=== PATIENT | male | born 1995 | race Hispanic/Latino ===

== ENCOUNTER 2024-03-10 21:37 | Emergency (ER) | payer MEDICAID ==
[~2024-03-10] VITALS: Ht 160 cm; Wt 69.4 kg
--- NOTE | 2024-03-10 21:44 | NUR ---
COVID, FLU AND STREP SWABS COLLECTED AND SENT [facility] PROVIDED
[2024-03-10 21:53] LABS: APPEARANCE,URINE CLEAR (CLEAR); BILIRUBIN,URINE NEGATIVE (NEGATIVE); COLOR,URINE LIGHT-YELLOW (YELLOW); GLUCOSE, URINE (UA) NEGATIVE (NEGATIVE); KETONES,URINE NEGATIVE (NEGATIVE); LEUKOCYTE ESTERASE ,URINE NEGATIVE Leu/uL (NEGATIVE); NITRATE,URINE NEGATIVE (NEGATIVE); OCCULT BLOOD,URINE NEGATIVE (NEGATIVE); PH,URINE 5.5 (5.0-8.0); PROTEIN,URINE NEGATIVE (NEGATIVE); UROBILINOGEN,URINE 0.2 mg/dL (0.2-1.0)
[2024-03-10 21:54] LABS: ADD UA MICROSCOPIC NO
[2024-03-10 22:21] LABS: RAPID GROUP A STREP negative (NEGATIVE)
[2024-03-10 22:25] LABS: SARS-CoV-2, RNA, NAAT NEGATIVE SARS CoV-2 (NEGATIVE)
[2024-03-10 22:30] LABS: INFLUENZA TYPE A Negative For Type A (NEGATIVE); INFLUENZA TYPE B Negative For Type B (NEGATIVE)
[2024-03-10 22:33] LABS: BASOPHILS # (AUTO) 0.03 K/uL (0.00-0.20); BASOPHILS % (AUTO) 0.4 % (0.0-5.0); EOSINOPHILS # (AUTO) 0.05 K/uL (0.00-0.70); EOSINOPHILS % (AUTO) 0.7 % (0.0-8.0); HEMATOCRIT 42.7 % (42-54); IMMATURE GRANULOCYTE ABSOLUTE 0.07 K/uL (0-1); LYMPHOCYTES # (AUTO) 3.4 K/uL (1.0-4.8); LYMPHOCYTES % (AUTO) 44.4 % (21.0-51.0); MEAN CORPUSCULAR HEMOGLOBIN 30.9 pg (27.0-33.0); MEAN CORPUSCULAR HGB CONC 36.5 g/dL (32.0-36.0); MEAN CORPUSCULAR VOLUME 84.6 fL (79-99); MONOCYTES # (AUTO) 0.3 K/uL (0.1-1.0); MONOCYTES % (AUTO) 4.3 % (3.0-13.0); NEUTROPHILS # (AUTO) 3.8 K/uL (1.8-7.7); NEUTROPHILS % (AUTO) 49.3 % (40.0-77.0); PLATELET COUNT (AUTO) 253 K/uL (130-400); RED BLOOD CELL COUNT(AUTO) 5.05 MIL/uL (4.50-6.20); RED CELL DISTRIBUTION WIDTH 11.6 % (11.0-15.5); WHITE BLOOD COUNT (AUTO) 7.7 K/uL (4.8-10.8)
[2024-03-10 23:02] LABS: ALBUMIN 4.6 g/dL (3.5-5.0); BILIRUBIN,TOTAL 0.5 mg/dL (0.2-1.0); TOTAL PROTEIN, SERUM 8.2 g/dL (6.0-8.3)
[2024-03-10 23:05] LABS: POTASSIUM 2.9 mmol/L (3.5-5.1)
[2024-03-10] MEDS: PoTASSium BIcarbonate/CIT AC 25 MEQ TABLET.EFF PO ONE (23:10)
--- NOTE | 2024-03-10 23:21 | ERN ---
ED Note History of Present Illness Stated Complaint: DIARRHEA Chief Complaint: Diarrhea Time Seen by MD: 21:42 Time Seen by Midlevel: 21:48 Dictation: 28-year-old male with history of hypertension and autism coming in complaining of diarrhea x5 today nonbloody. Patient denies having any abdominal pain, fever, vomiting, cough or congestion. Allergies: Coded Allergies: No Known Allergies (Unverified Allergy, Unknown, 03/10/24) Past Medical History Past Medical History: Asthma, Other Additional Past Medical Hx: AUTISTIC Surgical History: None Review of System Dictation Constitutional: Negative for fever,chills, and weight loss Eyes: Negative for injury, pain,redness, and discharge ENT: Negative for injury,pain or swelling Cardiovascular: Negative for chest pain, palpitations, and edema Respiratory: Negative for shortness of breath, cough, and wheezing, Abdomen/GI: Negative for abdominal pain, nausea, vomiting, complaining of diarrhea Back: Negative for injury and pain : Negative for injury, bleeding and discharge MS/Extremity: Negative for injury and deformity Skin: Negative for rash, and discoloration Neuro: Negative for headache, weakness, numbness, tingling, and seizure Psych: Negative for suicide ideation, homicidal ideation, and hallucinations Review of Systems: was completed Initial Vital Sign VS Vital Signs Date Time Temp Pulse Resp B/P (MAP) Pulse Ox O2 Delivery O2 Flow Rate FiO2 03/10/24 21:39 96.4 65 16 146/101 98 Room Air 03/10/24 22:11 0 21 Physical Exam Dictation General: awake, alert, NAD Head/Face: Normocephalic, atraumatic Eyes: PERRL, EOMI, vision at baseline ENT: oral cavity clear, TMs clear, no signs of infection Neck: Trachea midline, supple, no nuchal rigidity Cardiovascular: RRR, normal S1/S2, No MRGs, no JVD Respiratory: CTAB, no respiratory distress, No rales or wheezes Abdomen: Soft, non-tender, non-distended, normal bowel sounds, no guarding or rebound. Skin: Warm, dry, normal turgor, no rash MS/Extremity: Pulses equal, no cyanosis, neurovascular intact, FROM Neuro: COAx4, GCS 15, strength 5/5, CN 2-12 intact, normal cerebellar exam, normal gait, Psych: Normal behavior, mood, and affect normal Results (Laboratory/Radiology) Laboratory/Radiology Laboratory Tests Test 03/10/24 21:40 03/10/24 21:42 03/10/24 22:24 03/10/24 23:55 Influenza Type A Antigen Negative For Type A Influenza Type B Antigen Negative For Type B SARS-CoV-2, RNA, NAAT NEGATIVE SARS CoV-2 Group A Streptococcus Rapid negative (NEGATIVE) Urine Color LIGHT-YELLOW (YELLOW) Urine Appearance CLEAR (CLEAR) Urine pH 5.5 (5.0-8.0) Urine Specific Lovely 1.018 (1.001-1.031) Urine Protein NEGATIVE mg/dL (NEGATIVE) Urine Glucose (UA) NEGATIVE mg/dL (NEGATIVE) Urine Ketones NEGATIVE mg/dL (NEGATIVE) Urine Occult Blood NEGATIVE (NEGATIVE) Urine Nitrate NEGATIVE (NEGATIVE) Urine Bilirubin NEGATIVE mg/dL (NEGATIVE) Urine Urobilinogen 0.2 mg/dL (0.2-1.0) Urine Leukocyte Esterase NEGATIVE Norah/uL White Blood Count 7.7 K/uL (4.8-10.8) Red Blood Count 5.05 MIL/uL (4.50-6.20) Hemoglobin 15.6 g/dL (14.0-18.0) Hematocrit 42.7 % (42-54) Mean Corpuscular Volume 84.6 fL (79-99) Mean Corpuscular Hemoglobin 30.9 pg (27.0-33.0) Mean Corpuscular Hemoglobin Concent 36.5 g/dL (32.0-36.0) H Red Cell Distribution Width 11.6 % (11.0-15.5) Platelet Count 253 K/uL (130-400) Mean Platelet Volume 9.1 fL (7.5-10.5) Immature Granulocyte % (Auto) 0.9 % (0-1) Neutrophils (%) (Auto) 49.3 % (40.0-77.0) Lymphocytes (%) (Auto) 44.4 % (21.0-51.0) Monocytes (%) (Auto) 4.3 % (3.0-13.0) Eosinophils (%) (Auto) 0.7 % (0.0-8.0) Basophils (%) (Auto) 0.4 % (0.0-5.0) Neutrophils # (Auto) 3.8 K/uL (1.8-7.7) Lymphocytes # (Auto) 3.4 K/uL (1.0-4.8) Monocytes # (Auto) 0.3 K/uL (0.1-1.0) Eosinophils # (Auto) 0.05 K/uL (0.00-0.70) Basophils # (Auto) 0.03 K/uL (0.00-0.20) Absolute Immature Granulocyte (auto 0.07 K/uL (0-1) Nucleated Red Blood Cells 0.0 % (0.0-0.19) Sodium Level 140 mmol/L (136-145) Potassium Level 2.9 mmol/L (3.5-5.1) *L 3.3 mmol/L (3.5-5.1) L Chloride Level 104 mmol/L (101-111) Carbon Dioxide Level 27 mmol/L (21-32) Blood Urea Nitrogen 6 mg/dL (7-18) L Creatinine 1.0 mg/dL (0.5-1.3) Glomerular Filtration Rate Calc 105 mL/min (>90) Random Glucose 99 mg/dL (70-105) Total Calcium 9.5 mg/dL (8.5-10.1) Total Bilirubin 0.5 mg/dL (0.2-1.0) Aspartate Amino Transf (AST/SGOT) 24 U/L (10-37) Alanine Aminotransferase (ALT/SGPT) 25 U/L (12-78) Alkaline Phosphatase 69 U/L (50-136) Total Protein 8.2 g/dL (6.0-8.3) Albumin 4.6 g/dL (3.5-5.0) Labs Reviewed?: Yes ED Course ED Course Orders Procedure Category Date Status Time Covid Rna Naat LAB 03/10/24 Complete 21:43 Influenza Type A & B, LAB 03/10/24 Complete Rapid 21:43 Rapid (Group A Strep) LAB 03/10/24 Complete 21:43 Urinalysis Profile LAB 03/10/24 Complete 21:43 Cbc With Differential LAB 03/10/24 In Process 22:00 Comprehensive LAB 03/10/24 Complete Metabolic Panel 22:00 12 Lead Ekg Tracing- EKG 03/10/24 Logged Technical 22:00 Potassium Bicarb/Cit PHA 03/10/24 Complete Ac 25meq (K-Lyte Ta 23:30 Potassium LAB 03/11/24 Complete 00:00 Current Medications Medications (Trade) Dose Ordered Sig/Jana Route PRN Reason Start Time Stop Time Status Last Admin Dose Admin Potassium Bicarbonate (K-Lyte Tablet Eff 25 Meq Tablet.eff) 50 meq ONCE ONCE PO 03/10/24 23:30 03/10/24 23:31 DC 03/10/24 23:10 Vital Signs Date Time Temp Pulse Resp B/P (MAP) Pulse Ox O2 Delivery O2 Flow Rate FiO2 03/10/24 23:11 97.9 67 18 131/96 96 Room Air* 0 21 03/10/24 22:11 96.4 65 16 146/101 98 Room Air* 0 21 03/10/24 21:39 96.4 65 16 146/101 98 Room Air Medical Decision Making MDM MDM: 28-year-old male with history of hypertension and autism coming in complaining of diarrhea x5 today nonbloody. Patient denies having any abdominal pain, fever, vomiting, cough or congestion. Patient has a time of interview was eating a sandwich, tolerating it. Differential diagnosis: Gastroenteritis, dehydration, electrolyte abnormality.CBC shows no leukocytosis, no anemia, no thrombocytopenia. Chemistry shows hypokalemia at 2.9, replacement given in ER, no other electrolyte abnormality. No transaminitis, T bili within normal range. UA shows no evidence of urinary tract infection. Serology negative for COVID and flu. MS 3.3. Discussed findings with the patient. Educated patient to eat more food with potassium and to return to the ER if diarrhea does not resolve. Educated to follow up with PCP in 1-2 days and comes to the ER symptoms worsen. Rationale: Tests considered and ordered secondary to shared decision making include: Previous outside records reviewed: Old ER visits. Risk of complication and/or morbidity or mortality of patient management: None Medications-Per medication reconciliation Need for hospitalization: Patient does not meet criteria for hospitalization. Need for emergency major/minor surgery: No There are no social concerns with this patient. Prescription drug management Prescriptions will include symptomatic care Patient's prior external medical records from other ER visits were reviewed by me as indicated. Prior testing and results from previous visits were reviewed. Prior tests were taken into account with medical decision making and resource utilization, independent historian/historians were used to obtain complete medical history. I independently interpreted the test that were performed, results were reviewed by me and considered findings on radiology if ordered. Medical management and examination interpretation discussions were had by me with other qualified healthcare professionals as indicated for the patient's care. DX & DISP Disposition: Discharge Departure Impression: Primary Impression: Hypokalemia Additional Impression: Diarrhea Condition: Stable Additional Instructions: You can take loperamide/iodium as needed for the diarrhea. Stay hydrated. Follow up with PCP in 1-2 days. Referrals: SELF,REFERRAL (PCP) Time of Disposition: 00:17 I have reviewed the case, and I agree with, Diagnosis and Plan CECILIA ALBERT NP Mar 10, 2024 23:21
[2024-03-11 00:21] VITALS: BP 127/85; PULSE 72; RESP 20; TEMP 97.1; O2SAT 97
--- NOTE | 2024-03-11 07:20 | EKG ---
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
[2024-03-11] MEDS ORDERED: HYDR28.32 TP (21:54)
== END 2024-03-11 00:24 | disposition home or self-care (01) ==
LOC: EDH 21:37
DX: E87.6 Hypokalemia (principal); R19.7 Diarrhea, unspecified; F84.0 Autistic disorder; J45.909 Unspecified asthma, uncomplicated; Z20.822 Contact with and (suspected) exposure to COVID-19
CPT/HCPCS: 36415; 80053; 81003; 84132; 85025; 87635; 87804; 87880; 93005; 99284

== ENCOUNTER 2024-03-11 20:42 | Emergency (ER) | payer MEDICAID ==
[~2024-03-11] VITALS: Ht 167.6 cm; Wt 70.3 kg
[2024-03-11] MEDS ORDERED: HYDR28.32 TP (21:54)
--- NOTE | 2024-03-11 21:54 | ERN ---
ED Note History of Present Illness Stated Complaint: C/O BURNING TO RIGHT SIDE OF MOUTH Chief Complaint: Other Problems Time Seen by MD: 21:00 Time Seen by Midlevel: 21:00 Dictation: The patient is a 28-year-old male with a history of autism who presents to the emergency department with complaints of rash to right side of lip that burn after shaving today. Allergies: Coded Allergies: No Known Allergies (Unverified Allergy, Unknown, 03/10/24) Past Medical History Past Medical History: Other Additional Past Medical Hx: HX OF AUTISM Surgical History: None RN Note Reviewed/Agreed w/PFSH: Yes Review of System Dictation Constitutional: Negative for fever,chills, and weight loss Eyes: Negative for injury, pain,redness, and discharge ENT: Negative for injury,pain or swelling Cardiovascular: Negative for chest pain, palpitations, and edema Respiratory: Negative for shortness of breath, cough, and wheezing, Abdomen/GI: Negative for abdominal pain, nausea, vomiting, diarrhea, and constipation Back: Negative for injury and pain : Negative for injury, bleeding and discharge MS/Extremity: Negative for injury and deformity Skin: Negative for rash, and discoloration positive for rash right side of the Neuro: Negative for headache, weakness, numbness, tingling, and seizure Psych: Negative for suicide ideation, homicidal ideation, and hallucinations Initial Vital Sign VS Vital Signs Date Time Temp Pulse Resp B/P (MAP) Pulse Ox O2 Delivery O2 Flow Rate FiO2 03/11/24 20:43 98.8 58 20 141/87 98 Room Air Physical Exam Dictation Vital Signs reviewed General Appearance: Alert, oriented x 3, no acute distress, well developed, nourished. Head and Face: non-traumatic. Eyes: PERRL, pink conjunctivas, eyelid no trauma, anterior chamber with arcus senilis. Ears: Pinnas intact and no signs of trauma or erythema ear canals clear and no discharge TM no erythema Nose: No discharge, no bleeding. Oropharynx: Mouth normal, tongue pink. pharynx clear,no erythema, tonsils no exudates, no abscesses noted, mucous membrane moist Neck: Supple, non-tender, no thyromegaly, no masses, no JVD, no bruits Breast:Deferred Chest:No tenderness, no crepitus, no paradoxical movement, no retractions Lungs:Clear, well-ventilated, symmetric, no rales, no wheezing, no rhonchi, no stridor, good breath sounds bilaterally Heart: Regular rate, regular rhythm, no murmur, no gallops Vascular: no peripheral edema, Abdomen: Soft, positive bowel sounds, nondistended, no guarding, nontender, no rebound, no masses no hepatomegaly, no splenomegaly, no Lux's sign, no hernias. Rectal: Deferred Genital: Deferred Neurological: Normal speech, motor function intact, sensory function intact Musculoskeletal: Neck nontender, full range of motion, back nontender, full range of motion, Extremities: nontender, full range of motion Skin: Color pink, dry, no turgor, no rash, no lacerations, no abrasions, no contusions. Small erythemic papule rash to right lip, no drainage, Lymphatic: Deferred Results (Laboratory/Radiology) Labs Reviewed?: Yes ED Course ED Course Vital Signs Date Time Temp Pulse Resp B/P (MAP) Pulse Ox O2 Delivery O2 Flow Rate FiO2 03/11/24 20:43 98.8 58 20 141/87 98 Room Air Medical Decision Making MDM The patient is a 28-year-old male with a history of autism who presents to the emergency department with complaints of rash to right side of lip that burn after shaving today. Patient's rash more likely related to shaving. Patient in no acute distress will be discharged to follow up with PCP. Differential diagnosis: Herpes, irritation, cellulitis Need for hospitalization: Patient does not meet criteria for hospitalization. There are no social concerns with this patient. DX & DISP Disposition: Discharge Departure Impression: Primary Impression: Pseudofolliculitis barbae Condition: Stable Scripts Hydrocortisone (Hydrocortisone 1% 28.35GM) 1 % Crm 1 APPL TP BID for 5 Days, #15 GM 0 Refills apply to affected area(s) Prov: RAFA KHAN 03/11/24 Referrals: SELF,REFERRAL (PCP) Time of Disposition: 21:52 I have reviewed the case, and I agree with, Diagnosis and Plan RAFA KHAN Mar 11, 2024 21:54
[2024-03-11 22:47] VITALS: BP 149/93; PULSE 78; RESP 18; TEMP 97.9; O2SAT 98
== END 2024-03-11 22:51 | disposition home or self-care (01) ==
LOC: EDH 20:42
DX: L73.1 Pseudofolliculitis barbae (principal); F84.0 Autistic disorder
CPT/HCPCS: 99282